=== PATIENT | male | born 1950 | race Caucasian/White ===

== ENCOUNTER 2022-06-18 21:18 | Emergency (ER) | payer MEDICARE, OTHER, SELFPAY ==
[2022-06-18] VITALS (10 sets, daily range): BP systolic 134–188; BP diastolic 71–92; PULSE 43–57; RESP 16; TEMP 36.1; O2SAT 92–97
--- NOTE | 2022-06-18 22:14 | ED_ITS ---
HPI - General Adult General Chief complaint: Unspecified Complaint, Adult Stated complaint: heart rate is low, blood pressure 172/85 Time Seen by Provider: 06/18/22 21:56 History of Present Illness HPI narrative: 72-year-old man the history apparently of some heart rate variability though not so extreme presenting today with concern of low heart rate. Apparently watch alerted him to heart rate in the 30s. Thirty-eight he shows on his watch. Asymptomatic otherwise. The later conversation reveals that sometimes will feel a little tap on his chest. Arrival here EKG shows seems to show numerous PVCs no 1st degree AV block at 61 there is a left bundle. He notes a ?prostate from hell that sometimes babin but otherwise in usual state of health. Usual state of health does include vigorous daily walking which has not apparently been affected recently. Does also have dyspepsia/GERD and takes omeprazole for this which causes some numb lips; doctor aware they have decided to continue with omeprazole. Has also recently developed peripheral neuropathy, numb/tingling feet, for which he is initiated gabapentin. He has otherwise not had atypical chest pain, shortness of breath, lightheadedness. No fever cough or cold symptoms. Multiple cocktails in the evening now that retired. Active Problems Medical Problems: Hyperlipidemia BPH (benign prostatic hyperplasia) Migraines Gout Spinal stenosis Hypertension Chronic prostatitis Vitamin B12 deficiency GERD (gastroesophageal reflux disease) Hiatal hernia RUQ abdominal pain Irritable bowel syndrome (IBS) Alcoholic fatty liver suspect HCD (health care directive) Health Care Directive completed on 04/22/18. Reviewed for scanning to medical record on 03/05/19. LLQ abdominal pain Surgical Problems: Hx of left inguinal hernia repair History of testicular surgery Historical Problems Medical Problems: Diverticulitis Related Data Previous Rx's Medication Instructions Recorded sildenafil 100 mg tablet (Viagra) 100 mg PO QDAY PRN sexual activity 06/13/22 #9 tabs Allergies Allergy/AdvReac Type Severity Reaction Status Date / Time No Known Drug Allergies Allergy Verified 03/21/22 11:18 Review of Systems Status of ROS: Reports: 10 or more systems reviewed and unremarkable except as noted in History and below [facility] Medical History Erectile dysfunction Social History Smoking Status: Never smoker How often do you have a drink containing alcohol: 2-3 times a week AUDIT-C Alcohol total score: 3 Non-prescribed substance use: denies use Exam Narrative: Exam Narrative: Very pleasant. Generally flatter or blunted affect. NAD. Seems either tired or with some mildly slowed cognition. Cranial nerves 2-12 look to be intact. He is breathing easily. Head is atraumatic. Neck is supple. I do not appreciate JVD. Lungs appear to be clear. Heart with an irregularly irregular rhythm. Palpates irregularly. Abdomen is protuberant soft nontender. Extremities well perfused. Moving all extremities without difficulty with intact strength and sensation, though I did not remove socks to further evaluate feet. He does have mild dependent lower extremity edema. Const: Vital Signs, click to edit/add: Vital Signs - 24 hr 06/18/22 21:29 06/18/22 21:41 06/18/22 22:00 Temperature 96.9 F L Pulse Rate 52 L 43 L Pulse Rate [Right Pulse Oximeter] 55 L Respiratory Rate 16 Blood Pressure Blood Pressure [Le ft Upper Arm] 188/92 H Pulse Oximetry 97 95 95 Oxygen Delivery Me thod Room Air 06/18/22 22:03 06/18/22 22:36 06/18/22 22:37 Temperature Pulse Rate 47 L 51 L 57 L Pulse Rate [Right Pulse Oximeter] Respiratory Rate Blood Pressure 164/78 H 151/89 H Blood Pressure [Le ft Upper Arm] Pulse Oximetry 96 95 94 Oxygen Delivery Me thod 06/18/22 23:00 06/18/22 23:03 06/18/22 23:30 Temperature Pulse Rate 54 L 53 L 57 L Pulse Rate [Right Pulse Oximeter] Respiratory Rate Blood Pressure 134/71 Blood Pressure [Le ft Upper Arm] Pulse Oximetry 92 94 96 Oxygen Delivery Me thod 06/19/22 00:13 06/19/22 00:16 06/19/22 00:30 Temperature Pulse Rate 63 59 L 59 L Pulse Rate [Right Pulse Oximeter] Respiratory Rate Blood Pressure 128/105 H Blood Pressure [Le ft Upper Arm] Pulse Oximetry 95 95 96 Oxygen Delivery Me thod Documenting provider has reviewed patient's vital signs: yes Course Vital Signs Vital signs: Initial Vital Signs Temperature 96.9 F L 06/18/22 21:29 Temperature Source Temporal Artery Scan 06/18/22 21:29 Pulse Rate 55 L 06/18/22 21:29 Pulse Rhythm 06/18/22 21:29 Respiratory Rate 16 06/18/22 21:29 Blood Pressure 188/92 H 06/18/22 21:29 Blood Pressure Mean 124 06/18/22 21:29 Blood Pressure Position Semi-Fowlers 06/18/22 21:29 Pulse Oximetry 97 06/18/22 21:29 Oxygen Delivery Method 06/18/22 21:29 Vital Signs Temperature 96.9 F L 06/18/22 21:29 Pulse Rate 55 L 06/18/22 21:29 Respiratory Rate 16 06/18/22 21:29 Blood Pressure 188/92 H 06/18/22 21:29 Pulse Oximetry 97 06/18/22 21:29 Oxygen Delivery Method 06/18/22 21:29 Temperature 96.9 F L 06/18/22 21:29 Pulse Rate 59 L 06/19/22 00:30 Respiratory Rate 16 06/18/22 21:29 Blood Pressure 128/105 H 06/19/22 00:16 Pulse Oximetry 96 06/19/22 00:30 Oxygen Delivery Method 06/18/22 21:29 Medical Decision Making MDM Narrative Medical decision making narrative: Monitored on vehicle monitor technician during time in the emergency department. Continuing to demonstrate PVCs and ectopy. There may have been a brief run of supraventricular tachycardia. Remains asymptomatic. IV was initiated received a L of normal saline. Labs were unremarkable. I did review EKGs with Cardiology. Also wondering whether there are non- conducting PACs. They are recommending ZIO patch though comfortable with what we have available in the form of a Holter monitor. No other intervention at this time. Lab Data Lab results reviewed: Yes I reviewed the patient's lab results Labs: Lab Results 06/18/22 06/18/22 06/18/22 Range/Units 22:12 22:12 22:13 Sodium 139 (135-149) mmol/L Potassium 3.7 (3.6-5.1) mmol/L Chloride 106 (96-114) mmol/L Carbon Dioxide 27 (20-32) mmol/L BUN 16 (7-30) mg/dL Creatinine 1.0 (0.5-1.5) mg/dL Estimated GFR 79 ml/min Glucose 122 H (60-115) mg/dL Calcium 9.4 (8.4-10.6) mg/dL Magnesium 2.2 (1.5-2.6) mg/dL Total Bilirubin 0.5 (0.1-1.5) mg/dL Direct Bilirubin 0.2 (0.0-0.5) mg/dL AST 33 (12-35) U/L ALT 27 (4-50) U/L Alkaline Phosphatase 138 (40-150) U/L Troponin I 0.02 (0.01-0.04) ng/mL C-Reactive Protein < 0.5 L (0.5-1.0) mg/dL NT-Pro-B Natriuret Pep 654 pg/mL Total Protein 7.8 (6.0-8.3) g/dL Albumin 4.4 (3.3-5.0) g/dL Urine Opiates Screen Negative (Negative) Ur Oxycodone Screen Negative (Negative) Urine Methadone Screen Negative (Negative) Ur Propoxyphene Screen Negative (Negative) Ur Barbiturates Screen Negative (Negative) U Tricyclic Antidepress Negative (Negative) Ur Phencyclidine Scrn Negative (Negative) Ur Amphetamines Screen Negative (Negative) U Methamphetamines Scrn Negative (Negative) U Benzodiazepines Scrn Negative (Negative) Urine Cocaine Screen Negative (Negative) U Marijuana (THC) Screen Negative (Negative) Ur Drug Screen Comment See Note Ethyl Alcohol < 0.01 L (0.01-0.03) % ECG Data Attestation: I personally reviewed and interpreted this ECG as follows: (1. sinus bradycardia, rate of 61, frequent pvcs (also a brief run of tachycardia, svt?) 2. sinus bradycardia, pvcs and fusion) Discharge Plan Discharge Clinical Impression: Asymptomatic PVCs, Arrhythmia, Bradycardia Patient Disposition: Home w/ Parent or Adult Condition: Stable Instructions: Bradycardia (ED) Additional Instructions: Important to stay well hydrated...with water at least. :) At this point I do not see any reason to restrict your exercise from what you are doing. Turn in this Holter monitor as instructed. I would call tomorrow for a follow- up in primary care probably around 7-10 days from now to follow-up the results. In the meantime, return for recurrent chest pain, increasing shortness of breath, recurrent lightheadedness. Prescriptions: No Action sildenafil [Viagra] 100 mg tablet 100 mg PO QDAY PRN (Reason: sexual activity) Qty: 9 0RF Rx Instructions: administer 1 tablet, 1 hour prior to intercourse Follow Up/Referrals: Kun Schneider MD [Primary Care Provider] - Stand Alone Forms: [employer] [facility] Info Instructions
[2022-06-18 22:23] LABS: Chloride* 106 mmol/L (96-114); Sodium* 139 mmol/L (135-149)
[2022-06-18 22:24] LABS: Potassium* 3.7 mmol/L (3.6-5.1)
[2022-06-18 22:25] LABS: Albumin* 4.4 g/dL (3.3-5.0)
[2022-06-18 22:26] LABS: Estimated Glomerular Filt Rate 79 ml/min
[2022-06-18 22:27] LABS: Blood Urea Nitrogen* 16 mg/dL (7-30); Calcium* 9.4 mg/dL (8.4-10.6); Carbon Dioxide* 27 mmol/L (20-32); Glucose* 122 mg/dL (60-115)
[2022-06-18 22:28] LABS: Alanine Aminotransferase* 27 U/L (4-50); Alkaline Phosphatase* 138 U/L (40-150); Aspartate Amino Transferase* 33 U/L (12-35); Bilirubin Direct* 0.2 mg/dL (0.0-0.5); Bilirubin Total* 0.5 mg/dL (0.1-1.5); Magnesium* 2.2 mg/dL (1.5-2.6); Total Protein* 7.8 g/dL (6.0-8.3)
[2022-06-18 22:36] LABS: C Reactive Protein* < 0.5 mg/dL (0.5-1.0)
[2022-06-18 22:36] LABS: Ethanol* < 0.01 % (0.01-0.03); NT Pro B Type NatriureticPept* 654 pg/mL
[2022-06-18 22:39] LABS: Amphetamine Screen Urine Negative (Negative); Barbiturate Screen Urine Negative (Negative); Benzodiazepines Screen Urine Negative (Negative); Cannabinoid Screen Urine Negative (Negative); Cocaine Screen Urine Negative (Negative); Methadone Screen Urine Negative (Negative); Methamphetamines Screen Urine Negative (Negative); Opiate Screen Urine Negative (Negative); Oxycodone Screen Urine Negative (Negative); Phencyclidine Screen Urine Negative (Negative); Tricyclic Antidepressant Urine Negative (Negative)
[2022-06-18 22:39] LABS: Troponin I* 0.02 ng/mL (0.01-0.04)
[2022-06-18] MEDS: 0.9 % SODIUM CHLORIDE 1000 ml 1,000 ML IV (23:00)
[2022-06-19 00:13] VITALS: PULSE 63; O2SAT 95
[2022-06-19 00:16] VITALS: BP 128/105; PULSE 59; O2SAT 95
[2022-06-19 00:30] VITALS: PULSE 59; O2SAT 96
== END 2022-06-19 01:24 | disposition home or self-care (01) ==
PROVIDERS: Emergency Provider Family Medicine; PCP Internal Medicine
DX: I49.3 Ventricular premature depolarization (principal); R00.1 Bradycardia, unspecified; I49.9 Cardiac arrhythmia, unspecified
CPT/HCPCS: 36415; 80048; 80076; 80306; 82077; 83735; 83880; 84484; 86140; 93005; 93225; 93226; 96360; 99284; J7030

== ENCOUNTER 2022-09-19 07:51 | Outpatient (CLI) | payer MEDICARE, OTHER, SELFPAY ==
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
== END 2022-09-19 07:52 | disposition home or self-care (01) ==
PROVIDERS: PCP Internal Medicine; Visit Provider Internal Medicine
DX: E78.5 Hyperlipidemia, unspecified (principal); I10 Essential (primary) hypertension; Z12.5 Encounter for screening for malignant neoplasm of prostate
CPT/HCPCS: 80053; 80061; 84153

== ENCOUNTER 2023-01-31 06:25 | Outpatient (CLI) | payer MEDICARE, OTHER, SELFPAY ==
--- OUTSIDE RECORDS SUMMARY | 2023-01-31 06:27 | XMS_ITS | Continuity of Care Document ---
Author Name Unknown Organization [facility] Address [address] [address] [place] [address] Phone Care Team Providers Care Repair Department Manager Name Role Phone Jamar Russell MD Unavailable Unavailable Allergies, Adverse Reactions, Alerts Substance Reaction Status Criticality No Known Allergies Active No Inform ation Medications Medication Instructions Dosage Effective Dates (start - stop) Status Comments Protonix 40 mg tablet,delayed release take 1 tablet by oral route every day 40 MG - Active dicyclomine 10 mg capsule take 1 capsule by oral route 4 times every day 10 MG - Active allopurinol 300 mg tablet take 1 tablet by oral route every day 300 MG - Active BENEFIBER (unknown strength) Not Available - Active METHYLPREDNISOLONE (unknown strength) take by oral route as directed per package instructions Not Available - Active Protonix 40 mg granules delayed-release packet take 1 packet by oral route every day mixed in 1 teaspoonful of applesauce or apple juice 40 MG - No Longer Active Protonix 40 mg granules delayed-release packet take 1 packet by oral route every day mixed in 1 teaspoonful of applesauce or apple juice 40 MG - No Longer Active Procedures Procedure Date Offic/outpt E&m Estab Low-mod 1 Established Level 3 or 15-24 min 2019 Breath Test Lactose Breath Test Glucose Breath Test Fructose Routine Serum Collection Gg; Iga, Igd, Igg, Igm, Ea New Level 3 or 30-44 min Advance Directives Directive Yes / No Effective Date File Name No Information Encounters Encounter Description Practice Location Reason(s) For Visit Diagnoses Date Provider Providers Copied on Encounter Offic/outpt E&m Estab Low-mod [facility], [address] [address], [place], [place], [id number], [place] tel:[phone] [facility] GI Symptoms or Concerns (chief complaint) Irritable bowel syndrome with diarrhea 1 Drew Roldan. [address], [facility] [address], [facility] [place], [id number] , [place]. tel: [phone] Referring Provider: Referral Self. [facility], [address] [address], [place], [place], [id number], [place] tel:[phone] [facility] No Information 1 Albaro Garcia. [address], [facility] [address], [place], [place], [id number] , [place]. tel: [phone] [facility], [address] [address], [place], [place], [id number], [place] tel:[phone] [facility] No Information 1 Edstrom LIANG Welch. [address], [address], [place], [place], [id number] , [place]. tel: [phone] Established Level 3 or 15-24 min [facility], [address] [address], [place], [place], [id number], [place] tel:[phone] [facility] GI Symptoms or Concerns (chief complaint) Mixed irritable bowel syndromeEncounte r for screening colonoscopy 0 Edstrom LIANG Welch. [address], [facility] [address], [place], [place], [id number] , [place]. tel: [phone] Referring Provider: Referral Self. [facility], [address] [address], [place], [id number], [place] tel:[phone] [facility] Mixed irritable bowel syndrome 0 Edstrom LIANG Welch. [address], [address], [place], [place], [address] , [place]. tel: [phone] Referring Provider: Rebekah TAVERA, [address], [place], [address] . tel:[phone] [facility], [address] [address], [place], [place], [address], [place] tel:[phone] [facility] Mixed irritable bowel syndrome 0 Edstrmichel Welch. [address], [address], [place], [address] , [place]. tel: [phone] Referring Provider: Rebekah TAVERA, [address], [place], [address] . tel:[phone] [facility], [address] [address], [place], [id number], [place] tel:[phone] [facility] Mixed irritable bowel syndrome 0 Edstrmichel Welch. [address], [address], [place], [address] , [place]. tel: [phone] Referring Provider: Rebekah TAVERA, [address], [place], [address] . tel:[phone] [facility], [address] [address], [place], [place], [id number], [place] tel:[phone] [facility] Mixed irritable bowel syndrome 0 Edstrmichel Welch. [address], [address], [place], [address] , [place]. tel: [phone] Referring Provider: Referral Self. New Level 3 or 30-44 min [facility], [address] [address], [place], [place], [address], [place] tel:[phone] [facility] GI Symptoms or Concerns (chief complaint) Irritable bowel syndrome with both constipation and diarrhea 0 Edstrom LIANG SaleemRebekah. [address], [address], [place], [address] , [place]. tel:[phone] Referring Provider: Kun Porter, [address] [place] [address], [address]. tel:[phone] [facility], [address] [address], [place], [address], [place] tel:[phone] [facility] No Information 0 Albaro Garcia. [address], [address], [place], [place], [address] , [place]. tel:[phone] Family History Family Member Type Diagnosis Age At Onset No Information Immunizations Vaccine Date Status Comments zoster vaccine recombinant administered N ote: [facility] bi-directional interface ; Source: Other Registry SARS-COV-2 (COVID-19) vaccin e, mRNA, spike protein, LNP, preservative free, 30 mcg/0.3mL dose administered Note: [facility] bi-direct ional interface ; Source: Other Registry SARS-COV-2 (COVID-19) vaccin e, mRNA, spike protein, LNP, preservative free, 30 mcg/0.3mL dose administered Note: [facility] bi-direct ional interface ; Source: Other Registry influenza, high-dose seasona l, quadrivalent, .7mL dose, preservative free administered Note: [facility] bi-direct ional interface ; Source: Other Registry zoster vaccine recombinant administered N ote: [facility] bi-directional interface ; Source: Other Registry influenza, high dose seasona l, preservative-free administered Note: [facility] bi-direct ional interface ; Source: Other Registry Pneumovax 23 administered Note: [facility] bi-d irectional interface ; Source: Other Registry influenza, high dose seasona l, preservative-free administered Note: [facility] bi-direct ional interface ; Source: Other Registry Afluria Qd administered Note: [facility] bi-directional interface ; Source: Other Registry Fluzone Quad 6mo or older administered Note: [facility] bi-direct ional interface ; Source: Other Registry tetanus toxoid, reduced diphtheria toxoid, and acellular pertussis vaccine, adsorbed administered Note: [facility] b i-directional interface ; Source: Other Registry influenza, high dose seasona l, preservative-free administered Note: [facility] bi-direct ional interface ; Source: Other Registry Prevnar 13 administered Note: [facility] bi-d irectional interface ; Source: Other Registry Afluria Qd administered Note: [facility] bi-directional interface ; Source: Other Registry Fluzone Quad 6mo or older administered Note: [facility] bi-direct ional interface ; Source: Other Registry Payers Payer name Insurance type Covered constitution party ID Authordevina gladys(s) Medicare NGS MB [id number] [facility]3] [id number] Social History Type Description Quantity Date Captured Comments Alcohol Use Details Caffeine Use Details Unknown Tobacco Use Status No Information Smoking Status Former smoker Non-Smoking Tobacco Use Details : No Details Available : No Details Available Sex Male Vital Signs Date / Time: Height Weight BMI Pulse Rate Blood Pressure Temperature Respiratory Rate Body Surface Area Head Circumference Head Circ. Percentile Wt./Jose Luis. Percentile BMI percentile Pulse Ox Inhaled Ox 12:48 PM 72.50 in 97.522 kg (215.00 lbs) 28.7 6 kg/m eter (2) 94 /min 145/85 mm[Hg] Chief Complaint And Reason For Visit From encounter dated '12/19/2020 13:00'. GI Symptoms or Concerns (chief complaint). Description: The patient is a 70-year-old man with irritable bowel syndrome here for in-person clinic follow up. This is my first time meeting the patient. Please see the last note by Rebekah Portillo February 2020.At that visit, the patient was tried on Be nefiber, dicyclomine, advised to minimize or avoid dairy. His next colonoscopy for routine purposeswas due in 2022.The patient reports that he has been using Benefiber, taking 2 heaping teaspoons daily. He states it works well in terms of bowel regularity. He is now having a bowel movement in the morning and it is part of his regular routine and is controlled. He is on the low FODMAPs diet and uses an alyssa on his phone to help. He is lactose intolerant and generally avoids dairy products, but does carry lactate to use if he has some exposure. He has some intermittent cramping and urgency, which he treats with dicyclomine, which helps. He uses this prior to triggers especially. He is taking the dicyclomine 1 to 2 times a week. He also states that he thinks 70% of his problem could be &# 34;above the years with some anxiety and he apparently has talked to primary care providerabout this and is considering following up again to discuss potential treatment. His weight has been relatively stable, but is down 5 to 6 pounds after cutting out carbohydrates, but no unintentionalweight loss. No blood in the stools or black stools or vomiting. He is going to be traveling and wondered if there were any additional suggestions for his irritable bowel while he travels and this was discussed with him today in the context of IBS management. Reason For Referral Reason For Referral No Information Plan Of Treatment Date Type Action Status Referral Ordered: Colonoscopy Appointment date/timeframe: 02/02/2023 ordered Referral Ordered: Breath Test Lactose Appointment date/timeframe: 01/03/2020 ordered Referral Ordered: Breath Test Fructose Appointment date/timeframe: 01/03/2020 ordered Referral Ordered: Celiac: TTG IgA + Total IgA Appointment date/timeframe: 01/03/2020 ordered Referral Ordered: Breath Test Glucose Appointment date/timeframe: 01/03/2020 ordered History Of Present Illness Encounter Date Complaint History Of Prese nt Illness GI Symptoms or Concerns The nayely ent is a 70-year-old man with irritable bowel syndrome here for in-person clinic follow up. This is my first time meeting the patient. Please see the last note by Rebekah Portillo February 2020.At that visit, the patient was tried on Benefiber, dicyclomine, advised to minimize or avoid dairy. His next colonoscopy for routine purposes was due in 2022.The patient reports that he has been using Benefiber, taking 2 heaping teaspoons daily. He states it works well in terms of bowel regularity. He is now having a bowel movement in the morning and it is part of his regular routine and is controlled. He is on the low FODMAPs diet and uses an alyssa on his phone to help. He is lactose intolerant and generally avoids dairy products, but does carry lactate to use if he has some exposure. He has some intermittent cramping and urgency, which he treats with dicyclomine, which helps. He uses this prior to triggers especially. He is taking the dicyclomine 1 to 2 times a week. He GI Symptoms or Concerns This is a pleasant 69-year-old male with past medical history significant for hyperlipidemia, hypertension, gout, vitamin B12 deficiency, spinal stenosis, chronic prostatitis, and GERD, presenting for virtual visit for followup regarding irritable bowel syndrome.The patient had his initial consultation on December 28, 2019. At that time, he described over 30 years of symptoms including intermittent abdominal cramping, alternating diarrhea and constipation, and rectal urgency. The symptoms are unpredictable. In between episodes, he has regular, formed daily bowel movements. A flareup" includes a normal formed stool in the morning followed by 2 to 3 more urgent loose bowel movements with associated abdominal cramping and increased flatulence. This can alternate then with at times having an urge to have a bowel movement and then not being able to pass stool or only a small amount. He is most bothered by the urgency symptoms. This tends to interfere with social engagements. He n GI Symptoms or Concerns This is a 69-year-old male with past medical history significant for hyperlipidemia, hypertension, gout, vitamin B12 deficiency, spinal stenosis, chronic prostatitis, and GERD, presenting for virtual visit for consultation regarding irritable bowel syndrome.The patient states that his symptoms began over 30 years ago. The symptoms include intermittent abdominal cramping, alternating diarrhea and constipation, and rectal urgency. His symptoms are unpredictable. In between episodes, he has regular, formed daily bowel movements. When he has a flare-up, he typically will have a normal formed stool in the morning followed by 2 to 3 more urgent loose stools with associated abdominal cramping and increased flatulence. This can alternate with at times and urge to have a bowel movement and then not being able to pass stool. He mentions that currently he has more of a predominance of constipation, but on further questioning, it sounds like it is more predominantly diarrhea. He akbar Functional Status Date Functional Assessmen t No Information Medications Administered Medication Instructions Dosage Effective Dates (start - stop) Status Comments Protonix 40 mg granules delayed-release packet take 1 packet by oral route every day mixed in 1 teaspoonful of applesauce or apple juice 40 MG - No Longer Active Instructions Date Instruction Additional Infor gabby -Continue Benefiber as you are doing-Continue dicyclomine as needed. This is prescribed by your primary care provider.-Continue low FODMAPs diet.-Ok to use if needed 1 or 2 Imodium tablets as anti-diarrhea. You can take before identifiable triggers like we discussed. -Return to GI clinic as needed. Resume follow-up with primary care provider. Related to Irritable bowel syndrome with diarrhea We had a long discus kisha regarding different IBS treatments again today. He is hesitant to start Benefiber given he had increased urgency and loose stools with psyllium in the past. Potentially, he may have better response with Benefiber. This hopefully would give more bulk to his stools and decrease urgency and loose stools. I also recommended dicyclomine to see if this also helps with his urgency. This particular symptom tends to be more problematic when he needs to go out socially. I think it would be beneficial to try taking about half-hour before he goes anywhere. He can also take this for abdominal cramping as needed. He is in his 70s, and we discussed the higher risk of anticholinergic side effects with this medication. He will monitor closely for these. His next screening colonoscopy is due in 2022, and I did place him in our recall. Random colon biopsies can be done at that time, if he continues to have ongoing symptoms, to rule out microscopic colitis. However, my suspicion for this is low given his extensive evaluations in the past. Related to Mixed irritable bowel syndrome The patient was most ly interested in different IBS treatments and these were discussed today. However, we will move forward with a celiac, lactose, and fructose breath testing, and glucose breath testing for small intestinal bacterial overgrowth. He currently is not having any symptoms and does not wish to start any medications presently. However, we did discuss fiber supplementation such as Benefiber to maintain regular bowel movements. In addition, an antispasmodic medication may be helpful. If he again has more prolonged symptoms of the loose stools as he had previously, could consider colonoscopy with random colon biopsies. This is not urgent at the present time. He will follow up in clinic in about 4 weeks. Related to Irritable bowel syndrome with both constipation and diarrhea Assessments Type Assessment Date assessment Irritable bowel syndrome with di arrhea impression IMPRESSIONA 70-year- old man with irritable bowel syndrome. Overall, his symptoms are globally controlled. We discussed irritable bowels natural history, pathophysiology and treatment. The patient had a number of questions today, which were answered. We discussed his travel related questions. Patient Care Teams Name Effective Dates (start - stop) Status Members No Information
--- OUTSIDE RECORDS SUMMARY | 2023-01-31 06:27 | XMS_ITS | Continuity of Care Document ---
Author Name Unknown Organization [facility] Address [address] [place] [address] Phone Care Team Providers Care Assistant District Attorney Name Role Phone Joel Meeks Unavailable Unavailable [...] For Visit Diagnoses Date Provider [facility], [address] [place] [address], [id number], tel:[phone] [facility] No Information Vielka Esquivelon. [address] [place] [address], [id number]. tel:[phone] EST PT VISIT LEVEL 4 [facility], [address] [place] [address], [id number], [place] tel:[phone] [facility] Follow Up of Prostate problems (chief complaint) Dietary surveillance and counselingChronic prostatitis Sheree Pires. [address] [place] [address], [id number]. tel:[phone] [facility], [address] [place] [address], [id number], tel:[phone] [facility] No Information Rosedale Joel. [address] [place] [address], [id number]. tel:[phone] [facility], [address] [place] [address], [id number], [place] tel:[phone] [facility] No Information [place]osedale Joel. [address] [place] [address], [id number]. tel:[phone] [facility], [address] [place] [address], [id number], [place] tel:[phone] [facility] No Information Gilberto Sears. , [place], [address], [place]. EST PT VISIT LEVEL 2 [facility], [address] [place] [address], [id number], [place] tel:[phone] [facility] Prostate problems (chief complaint) Dietary surveillance and counselingChronic prostatitis Vielka Joel. [address] [place] [address], [id number]. tel:[phone] EST PT VISIT LEVEL 3 [facility], [address] [place] [address], [id number], tel:[phone] [facility] Groin pain (chief complaint) Other specified disorders of male genital organsRight groin pain Vielka Maldonado. [address] [place] [address], [id number]. tel:[phone] EST PT VISIT LEVEL 3 [facility], [address] [place] [address], [id number], tel:[phone] [facility] Testicular pain (chief complaint)Pro state Problems (chief complaint) Nocturia Sheree Pires. [address] [place] [address], [id number]. tel:[phone] [facility], [address] [place] [address], [id number], tel:[phone] [facility] No Information Vielka Maldonado. [address] [place] [address], [id number]. tel:[phone] Family History Family Member Type Diagnosis Age At Onset Problem (finding) Family history of coronary arteriosclerosis 65 Immunizations Vaccine Date Status Comments Influenza, live, intranasal, quadrivalent administered Note: Invalid docume nted admin date was . ; Source: Other Provider Payers Payer name Insurance type Covered republican ID Luciano graham(s) [facility] Part B W P S [id number] [facility] W P S [id number] Social History Type Description Quantity Date Captured [...] occur randomly. Patient initially presented in the [facility] with what I believe was [...] light laser about 10 years ago in [place]. He has had intermittent symptoms. Throughout the years. He presents today as he has been having symptoms for about 3 months. He has just finished a one-month course of Cipro. He appears to have a nonbacterial prostatitis. His symptoms are worse with spicy and acidic foods or if he gets dehydrated. He is getting ready to leave for the [facility] in the morning for 5 days. PSA [...] 12 years ago and a urologist in [place] found some cysts on his testicle and [...]
--- NOTE | 2023-01-31 07:52 | P.ANES_ITS ---
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
--- NOTE | 2023-01-31 07:54 | W.ANESCHARGE ---
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
== END 2023-01-31 06:26 | disposition home or self-care (01) ==
PROVIDERS: PCP Internal Medicine; Visit Provider Internal Medicine
DX: Z12.11 Encounter for screening for malignant neoplasm of colon (principal); K57.30 Diverticulosis of large intestine without perforation or abscess without bleeding; K63.5 Polyp of colon; K64.8 Other hemorrhoids
CPT/HCPCS: 00811; 45380; 88305; 99100; J2704

== ENCOUNTER 2023-09-25 07:36 | Outpatient (CLI) | payer MEDICARE, OTHER, SELFPAY ==
--- OUTSIDE RECORDS SUMMARY | 2023-10-16 11:41 | XMS_ITS | Referral Summary ---
Author Name Unknown Organization [facility] Address [address] [place] [address] Care Team Providers Care Phone Representative Name Role Phone Unavailable Primary Care Provider Unavailabl e Source Comments Patient records contain information from all sites at [facility]. For routine questions regarding patient records, call [phone] during business hours, M-F 8:00 AM - 5:00 PM Central Time. Record requests for emergency care only can be directed to [phone] at any time.[facility] Encounters Date Type Department Care Team Description 07/23/2023 Orders Only Division of Gastroenterology in [place], [place] [address] [place] [address] Fernando Ye M.D. Genetic Susceptibility To Disease from Last 3 Months Allergies No known active allergies Medications Medication Sig Dispensed Refills Start Date End Date Status dicyclomine (BENTYL) 20 mg tablet Take 20 mg by mouth as needed. 03/28/2021 Active pantoprazole (PROTONIX) 40 mg EC tablet 11/02/2020 Active allopurinoL (ZYLOPRIM) 300 mg tablet Take 1 tablet by mouth daily. 12/15/2015 Active sildenafiL (VIAGRA) 100 mg tablet 11/02/2020 Active wheat dextrin (Benefiber Clear SF, dextrin,) 3 gram/3.5 gram packet Active ibuprofen (ADVIL,MOTRIN) 400 mg tablet Take 400 mg by mouth every 6 (six) hours as needed for pain. Active acetaminophen (TYLENOL) 500 mg capsule Take by mouth every 6 (six) hours as needed for pain. Active gabapentin (NEURONTIN) 100 mg capsule TAKE 1 CAPSULE BY MOUTH 3 TIMES A DAY 270 capsule 3 08/27/2022 Active Active Problems Problem Noted Date Diagnosed Date Neuropathy Peripheral 02/28/2022 Migraine Headache 02/28/2022 Spasm Muscle Social History Tobacco Use Types Packs/Day Years Used Date Smoking Tobacco: Former Cigarettes Q uit: 1985 Smokeless Tobacco: Never Tobacco Cessation:Counseling Given: Not Answered Humiliation, Afraid, Rape, and Kick questionnair e Answer Date Recorded Within the last year, have y ou been afraid of your partner or ex-partner? No 11/24/2021 Within the last year, have y ou been humiliated or emotionally abused in other ways by your partner or ex-partner? No Within the last year, have y ou been kicked, hit, slapped, or otherwise physically hurt by your partner or ex-partner? No 11/24/2021 Within the last year, have y ou been raped or forced to have any kind of sexual activity by your partner or ex-partner? No 11/24/2021 Social Connection and Isolation Panel [NHANES] A nswer Date Recorded In a typical week, how many times do you talk on the phone with family, friends, or neighbors? Three times a week 11/25/19 How often do you get togethe r with friends or relatives? Once a week 11/24/2021 How often do you attend chur or yazdanism services? Never 11/24/2021 Do you belong to any clubs o r organizations such as advent groups, unions, fraternal or athletic groups, or school groups? Yes 11/24/2021 How often do you attend meet ings of the clubs or organizations you belong to? 1 to 4 times per year 11/24/2021 Are you , , di vorced, , never , or living with a partner? 11/24/2021 AUDIT-C Answer Date Recorded Q1: How often do you have a drink containing alc ohol? 2-3 times a week 11/24/2021 Q2: How many drinks containi ng alcohol do you have on a typical day when you are drinking? 1 or 2 11/24/2021 Q3: How often do you have si x or more drinks on one occasion? Never 11/24/2021 Overall Financial Resource Strain (CARDIA) Answe r Date Recorded How hard is it for you to pa y for the very basics like food, housing, medical care, and heating? Not hard at all 11/24/2021 [facility] [place] [facility] Occup[facility] ional [facility] - Occupational Stress Questionnaire Answer Date Recorded Do you feel stress - tense, restless, nervous, or anxious, or unable to sleep at night because your mind is troubled all the time - these days? Not at all 11/24/2021 Exercise Vital Sign Answer Date Recorde d On average, how many days pe r week do you engage in moderate to strenuous exercise (like a brisk walk)? 7 days 11/24/2021 On average, how many minutes do you engage in exercise at this level? 30 min 11/24/2021 Hunger Vital Sign Answer Date Recorded Within the past 12 months, y ou worried that your food would run out before you got the money to buy more. Never true 11/25/19 Within the past 12 months, t he food you bought just didn't last and you didn't have money to get more. Never true 11/24/2021 PRAPARE - Transportation Answer Date Re corded In the past 12 months, has l ack of transportation kept you from medical appointments or from getting medications? No 11/01 In the past 12 months, has l ack of transportation kept you from meetings, work, or from getting things needed for daily living? No 11/24/2021 Housing Stability Vital Sign Answer Morteza e Recorded In the last 12 months, was t here a time when you were not able to pay the mortgage or rent on time? No 11/24/2021 In the last 12 months, how many places have you lived? 1 11/24/2021 In the last 12 months, was t here a time when you did not have a steady place to sleep or slept in a intermediate (including now)? No 11/24/2021 Nutrition Answer Date Recorded Nutrition: EVOO Fat Source Yes 11/24 On average, how many serving s of fruits and vegetables do you eat per day (serving size is equal to 1 cup or approximately the size of a tennis ball)? 4-5 11/24/2021 Dental Answer Date Recorded Dental: Regular Dentist Yes 11/25/19 Employment Answer Date Recorded Employment status Retired 11/24/2021 Education Answer Date Recorded What is the highest level of school you have completed or the highest degree you have received? Bachelor's degree (e.g., BA, AB, BS) 11/24/2021 Sex and Gender Information Value Date Recorded Sex Assigned at Male 02/23/2022 7:52 PM CDT Gender Identity Male 02/23/2022 7:52 PM CDT Sexual Orientation Straight 02/23/2022 7: 52 PM CDT Last Filed Vital Signs Vital Sign Reading Time Taken Comments Blood Pressure 158/89 02/28/2022 8:41 AM CDT Pulse 86 02/28/2022 8:41 AM CDT Temperature - - Respiratory Rate - - Oxygen Saturation - - Inhaled Oxygen Concentration - - Weight 100 kg (220 lb 7.4 oz) 02/28/2022 8:35 AM CDT Height - - Body Mass Index - - Plan of Treatment Not on file Procedures Procedure Name Priority Date/Time Associated Diagnosis Comments EXTI BASIC METABOLIC PANEL, S/P Routine 12/04/2022 10:31 AM CDT from Last 3 Months or Most Recently Relevant to Health Maintenance
--- OUTSIDE RECORDS SUMMARY | 2023-10-16 11:41 | XMS_ITS | Clinical Summary ---
Author Name Unknown Organization [facility] Address [place], [place] [address] Care Team Providers Care Public Information Specialist Name Role Phone Knu Schneider MD Primary Care Provider Allergies No known active allergies Medications Medication Sig Dispensed Refills Start Date End Date Status allopurinol (ZYLOPRIM) 300 mg tablet Take 1 tablet by mouth once daily. 0 12/27/2016 Active acetaminophen (TYLENOL) 500 mg capsule Take by mouth every 6 hours if needed. Active ibuprofen (ADVIL; MOTRIN) 400 mg tablet Take 400 mg by mouth every 6 hours if needed. Active pantoprazole (PROTONIX) 40 mg delayed-release tablet Take 40 mg by mouth once daily. 02/04/2022 Active sildenafil citrate (VIAGRA) 100 mg tablet TAKE ONE TABLET BY MOUTH EVERY DAY NEEDED FOR SEXUAL ACTIVITY. TAKE 1 HOUR PRIOR TO INTERCOURSE. 12/11/2021 Active Wheat Dextrin (Benefiber Clear) 3 gram/3.5 gram pwpk Active gabapentin (NEURONTIN) 600 mg tablet Take 600 mg by mouth three times daily. 09/23/2022 Active carvediloL (Coreg) 3.125 mg tabletIndications :Heart failure with reduced ejection fraction (HC) Take 1 Tablet (3.125 mg) by mouth two times daily with meals. 180 Tablet 3 03/07/2023 Active sacubitril-valsar chavez (ENTRESTO 24 MG-26 MG TABLET) 24-26 mg tabletIndications :Heart failure with reduced ejection fraction (HC) Take 1 Tablet by mouth two times daily. Further refills at time of next office visit on 11/27/23. 180 Tablet 10/07/2023 Active sacubitril-valsar chavez (ENTRESTO 24 MG-26 MG TABLET) 24-26 mg tabletIndications :Heart failure with reduced ejection fraction (HC) Take 1 Tablet by mouth two times daily. 180 Tablet 1 04/04/2023 10/07/2023 Discontinued Encounters Date Type Department Care Team Description 10/10/2023 Travel 10/07/2023 Refill [facility] [place] [address] [facility] [address] [place] [address] Piper Pickering CNS Refill Request (Entresto 24 Mg-26 Mg Tablet) from Last 3 Months Social History Tobacco Use Types Packs/Day Years Used Date Smoking Tobacco: Former Cigarettes Q uit: 06/02/1985 Smokeless Tobacco: Never Tobacco Cessation:Counseling Given: Not Answered Alcohol Use Standard Drinks/Week Comments Yes 21 (1 standard drink = 0.6 oz pu re alcohol) 2-3 drinks daily Social Connections Answer Date Recorded Frequency of Communication with Friends and Fami ly Not on file 07/12/2022 Sex and Gender Information Value Date Recorded Sex Assigned at Not on file Gender Identity Not on file Sexual Orientation Not on file Obstetrics History Last Filed Vital Signs Vital Sign Reading Time Taken Comments Blood Pressure 140/90 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 Pulse 83 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 Temperature 35.6 ??C (96 ??F) 09/02/2022 2:12 PM CDT Respiratory Rate 18 09/02/2022 2:12 PM CDT Oxygen Saturation 95% 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 Inhaled Oxygen Concentration - - Weight 94.8 kg (209 lb 1.6 oz) 04/18/2023 3:02 P M [employer]ER [employer] RU[employer]ER Height 182.9 cm (6') 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 Body Mass Index 28.36 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 [address] [place] [address] 02/10/2024 11:30 AM CDT Cardiac Device Check [facility] [place] [facility] [address] [place] [id number] Health Maintenance Due Date Last Done Comments Pneumococcal series for age 65+ (1 of 2 - PCV) 02/20/1954 Tdap 02/20/1959 Depression screening for age 12+ 1960 Hepatitis C screening for ag e 18-79 02/20/1966 Tetanus booster 1968 Colonoscopy through age 75 02/20/1993 Lipids for age 45-75 02/20/1993 Zoster (shingles) series for age 50+ (1 of 2) 02/20/1998 Medicare Wellness for age 65+ 02/20/2013 Influenza for age 65+ 02/01/2024 BMI (ht and wt on same day) for age 18+ 04/18/2024 04/18/2023, 11/26/2022, 11/12/2022, Additional history exists COVID-19 vaccine series Completed 04/03/20, 03/21/2022, 10/16/2021, Additional history exists Advance Directives * Full Code (Latest Code Status on File) Date Activated Date Inactivated Comments 09/02/2022 9:44 AM 09/02/2022 5:00 PM Question Answer Comments Code Status Discussion: Other Care Teams Public Information Specialist Relationship Specialty Start Date End Date Kun Schneider MD [address] [place], [place] [id number] PCP - General Internal Medicine 12/27/16
--- OUTSIDE RECORDS SUMMARY | 2023-10-16 11:41 | XMS_ITS | Continuity of Care Document ---
Author Name [facility] Organization [facility] Care Team Providers Care Sash Installer Name Role Phone [facility] Unavailable Unavailable Medications Combined list of outpatient medications from Department of Defense and Veterans Affairs facilities.Medications provided include 1) outpatient medications from the last 15 months, and 2) patient-reported medications. Medication Details Route Status Patient Instructions Prescription Expires Prescription Number Last Dispense Date Ordering Provider Order Date Order Qty Source ALLOPURINOL (allopurino l), 300 MG, TABLET, ORAL, [facility], 500 ea. BOTTLE Active [id number] 4 2023 90 Pharmac y Data Transac tion Service Facilit y ALLOPURINOL (allopurino l), 300 MG, TABLET, ORAL, [facility], 500 ea. BOTTLE Active [id number] 4 2023 90 Pharmac y Data Transac tion Service Facilit y CARVEDILOL (CARVEDILOL ), 3.125MG, TABLET, ORAL, GLENMARK PHARMA, 500 ea. BOTTLE Active [id number] 2023 180 Pharmac y Data Transac tion Service Facilit y CARVEDILOL (CARVEDILOL ), 3.125MG, TABLET, ORAL, [facility]MARK [facility]ARMA, 500 ea. BOTTLE Active [id number] 4 2023 180 Pharmac y Data Transac tion Service Facilit y DICYCLOMINE HCL (DICYCLOMIN E HCL), 10MG, CAPSULE, ORAL, [facility], 100 ea. BOTTLE Cancele d [id number] : 2023 0 Pharmac y Data Transac tion Service Facilit y DICYCLOMINE HCL (DICYCLOMIN E HCL), 10MG, CAPSULE, ORAL, [facility], 100 ea. BOTTLE Cancele d [id number] : 2023 0 Pharmac y Data Transac tion Service Facilit y DICYCLOMINE HCL (DICYCLOMIN E HCL), 10MG, CAPSULE, ORAL, [facility], 100 ea. BOTTLE Cancele d [id number] : 2023 0 Pharmac y Data Transac tion Service Facilit y DICYCLOMINE HCL (DICYCLOMIN E HCL), 10MG, CAPSULE, ORAL, [facility],I NC., 1000 ea. BOTTLE Cancele d [id number] : 2023 0 Pharmac y Data Transac tion Service Facilit y DICYCLOMINE HCL (DICYCLOMIN E HCL), 10MG, CAPSULE, ORAL, [facility],I NC., 1000 ea. BOTTLE Active [id number] 4 2023 90 Pharmac y Data Transac tion Service Facilit y DICYCLOMINE HCL (DICYCLOMIN E HCL), 10MG, CAPSULE, ORAL, [facility],I NC., 1000 ea. BOTTLE Active [id number] 2023 90 Pharmac y Data Transac tion Service Facilit y DIPHENOXYLA TE-ATROPINE (diphenoxyl ate HCl/atropin e sulfate), 2.5-.025MG, TABLET, ORAL, [facility], 100 ea. BOTTLE Active [id number] 2022 30 Pharmac y Data Transac tion Service Facilit y ENTRESTO (sacubitril /valsartan) , 24 MG-26MG, TABLET, ORAL, NOVARTIS, 60 ea. BOTTLE Cancele d [id number] : 2023 0 Pharmac y Data Transac tion Service Facilit y ENTRESTO (sacubitril /valsartan) , 24 MG-26MG, TABLET, ORAL, NOVARTIS, 60 ea. BOTTLE Active [id number] 2023 180 Pharmac y Data Transac tion Service Facilit y ENTRESTO (sacubitril /valsartan) , 24 MG-26MG, TABLET, ORAL, NOVARTIS, 60 ea. BOTTLE Cancele d [id number] : 2023 0 Pharmac y Data Transac tion Service Facilit y ENTRESTO (sacubitril /valsartan) , 24 MG-26MG, TABLET, ORAL, NOVARTIS, 60 ea. BOTTLE Cancele d [id number] : 2023 0 Pharmac y Data Transac tion Service Facilit y ENTRESTO (sacubitril /valsartan) , 24 MG-26MG, TABLET, ORAL, NOVARTIS, 60 ea. BOTTLE Active [id number] 2023 180 Pharmac y Data Transac tion Service Facilit y GABAPENTIN (GABAPENTIN ), 100 MG, CAPSULE, ORAL, ACTAVIS PHARMA,, 500 ea. BOTTLE Active [id number] 2023 180 Pharmac y Data Transac tion Service Facilit y GABAPENTIN (GABAPENTIN ), 600MG, TABLET, ORAL, GLENMARK PHARMA, 500 ea. BOTTLE Active [id number] 2023 180 Pharmac y Data Transac tion Service Facilit y GABAPENTIN (GABAPENTIN ), 600MG, TABLET, ORAL, GLENMARK PHARMA, 500 ea. BOTTLE Active [id number] 2023 180 Pharmac y Data Transac tion Service Facilit y IBUPROFEN (ibuprofen) , 800 MG, TABLET, ORAL, AUROBINDO PHARM, 500 ea. BOTTLE Active [id number] 2023 30 Pharmac y Data Transac tion Service Facilit y PANTOPRAZOL E SODIUM (PANTOPRAZO LE SODIUM), 40 MG, TABLET DR, ORAL, MYLAN, 90 ea. BOTTLE Active [id number] 2023 90 Pharmac y Data Transac tion Service Facilit y PANTOPRAZOL E SODIUM (PANTOPRAZO LE SODIUM), 40 MG, TABLET DR, ORAL, MYLAN, 90 ea. BOTTLE Active [id number] 2023 90 Pharmac y Data Transac tion Service Facilit y SILDENAFIL CITRATE (sildenafil citrate), 100 MG, TABLET, ORAL, AMNEAL PHARMACE, 30 ea. BOTTLE Active [id number] 2023 9 Pharmac y Data Transac tion Service Facilit y SILDENAFIL CITRATE (sildenafil citrate), 100 MG, TABLET, ORAL, AMNEAL PHARMACE, 30 ea. BOTTLE Active [id number] 2023 9 Pharmac y Data Transac tion Service Facilit y SILDENAFIL CITRATE (sildenafil citrate), 100 MG, TABLET, ORAL, AMNEAL PHARMACE, 30 ea. BOTTLE Active [id number] 2023 9 Pharmac y Data Transac tion Service Facilit y SILDENAFIL CITRATE (sildenafil citrate), 100 MG, TABLET, ORAL, AMNEAL PHARMACE, 30 ea. BOTTLE Active [id number] 2023 9 Pharmac y Data Transac tion Service Facilit y Allergies, Adverse Reactions, Alerts Combined list of allergies from Department of Defense and Veterans Affairs facilities. It does not include entries that were removed or entered in error. Substance Category Reaction Severity Reaction type Status Date Reported Comments Source OTHER Drug allergy (disorder) Unknown active 05/22/2007 [facility] Procedures Combined list of: 1) Procedures from Department of Veterans Affairs facilities going back up to [facility] 18 months, not all VA non-surgical procedures are included; 2) All procedures from the Department of Defense facilities. Procedure Procedure Type Code Date Perfomer Comments Sourc e NASOPHARYNGOSCOPY WITH ENDOSCOPE (SEPARATE PROCEDURE) 08/24/2003 [facility] RADIOLOGIC EXAMINATION, CHEST, 2 VIEWS, FRONTAL AND LATERAL; 08/10/2003 [facility] BRUSH FABRICATION SUPERVISOR ELECTROCARDIOGRAPHIC RECORDING UP TO 48 HOUR,CONT RHYTHM RECORDING & STORAGE;INCLUD RECORDING,SCANNING ANAL W REPORT,REVIEW &INTERPRETATION,A PHYSICIAN/OTHER QUALIFIED HEALTH SCRAP PICKER 07/29/2003 [facility] BLOOD PRESSURE CUFF ONLY 03/25/2003 [facility] BLOOD PRESSURE CUFF ONLY 03/24/2003 [facility] BLOOD PRESSURE CUFF ONLY 03/22/2003 [facility] BLOOD PRESSURE CUFF ONLY 03/21/2003 [facility] BLOOD PRESSURE CUFF ONLY 03/18/2003 [facility] BLOOD PRESSURE CUFF ONLY 03/15/2003 [facility] COLLECTION OF VENOUS BLOOD B Y VENIPUNCTURE 11/17/2002 [facility] EDUCATIONAL SUPPLIES, SUCH A S BOOKS, TAPES, AND PAMPHLETS, FOR THE PATIENT'S EDUCATION AT COST TO PHYSICIAN OR OTHER QUALIFIED HEALTH SCRAP PICKER 07/11/2000 [facility] DESTRUCT (EG, LASER SURGERY, ELECTROSURGERY, CRYOSURGERY, CHEMOSURGERY, SURGICAL CURETTEMENT), PREMALIGNANT LESIONS (EG, ACTINIC KERATOSES); 2ND THRU 14 LESIONS, EA (LIST SEP ADDITION CD, 1ST LESION) 11/15/1999 [facility] OSTEOPATHIC MANIPULATIVE TREATMENT (OMT); 1-2 BODY REGIONS INVOLVED 05/17/1999 [facility] OSTEOPATHIC MANIPULATIVE TREATMENT (OMT); 1-2 BODY REGIONS INVOLVED 05/01/1999 [facility] OSTEOPATHIC MANIPULATIVE TREATMENT (OMT); 1-2 BODY REGIONS INVOLVED 04/02/1999 [facility] INFLUENZA VIRUS VACCINE, WHOLE VIRUS, FOR INTRAMUSCULAR OR JET INJECTION USE 04/02/1999 DoD Social History Combined list of available smoking, tobacco, and other social history from Department of Defense and Veterans Affairs facilities. Social History Type Response Date Comment Sour e This section is an empty social history section. [facility]D
--- OUTSIDE RECORDS SUMMARY | 2023-10-16 11:41 | XMS_ITS ---
Author Name Unknown Organization [facility] Address [address] [place] [address] Care Team Providers Care Grinding Operator Name Role Phone Unavailable Unavailable Unavailable Surgery Details Not on file Complications Check Surgery Details section. Procedure Estimated Blood Loss Check Surgery Details section. Procedure Findings Check Surgery Details section. Procedure Specimens Taken Check Surgery Details section.
--- OUTSIDE RECORDS SUMMARY | 2023-10-16 11:41 | XMS_ITS | Encounter Summary ---
Author Name Unknown Organization [facility] Address [address] [place] [address] Care Team Providers Care Independent Living Advisor Name Role Phone Unavailable Primary Care Provider Unavailabl e Encounter Details Date Type Department Care Team (Late st Contact Info) Description 07/23/2023 Orders Only Division of Gastroenterology in [place], [place] [address] [place] [id number] Fernando Ye M.D. [address] [place] [address] Genetic Susceptibility To Disease Social History Tobacco Use Types Packs/Day Years Used Date Smoking Tobacco: Former Cigarettes Q uit: 1985 Smokeless Tobacco: Never Humiliation, Afraid, Rape, and Kick questionnair e [...] 11/24/2021 How often do you attend chur ch or sikhism services? Never 11/24/2021 Do you belong to any clubs o r organizations such as moravian groups, unions, fraternal or athletic groups, or [...] and heating? Not hard at all 11/24/2021 [facility] of Occupat ional Health - Occupational Stress [...] money to buy more. Never true 11/25/19 22 Within the past 12 months, t he [...] place to sleep or slept in a long term (including now)? No 11/24/2021 Nutrition Answer Date [...] Orientation Straight 02/23/2022 7: 52 PM CDT documented as of this encounter Plan of Treatment Not on file documented as of this encounter Procedures Procedure Name Priority Date/Time Associated Diagnosis Comments EXT TAPESTRY Routine 02/08/2023 12:00 AM CDT Genetic Susceptibility To Disease documented in this encounter Results * EXT Tapestry (02/08/2023 12:00 AM CDT) Gene Studied BRCA1,BRCA2,MLH1,MSH 2, MSH6,PMS2,EPCAM,APOB,L DLR,LDLRAP1,PCSK9 03/06/2023 12:00 AM CDT [facility] Genetic Disease Assessed Evaluation of 11 genes associated with Hereditary Breast and Ovarian Cancer, Jenkins Syndrome and Familial Hypercholesterolemia. 03/06/2023 12:00 AM [facility] Genetic Analysis Overall Interpretation Negative results through Tapestry do not replace diagnostic testing for patients with a personal or family history of cancer/hypercholestero lemia due to limitations with methodology. Consider a referral to a genetic counselor for diagnostic testing if warranted. 03/06/2023 12:00 AM [facility] Genetic Analysis Report See Tapestry PDF Report No actionable gene changes were detected in the genes that cause Familial Hypercholesterolemia. The genes tested for this condition were APOB, LDLR, LDLRAP1, and PCSK9.No actionable gene changes were detected in the genes that cause Hereditary Breast and Ovarian Cancer. The genes tested for this condition were BRCA1 and BRCA2.No actionable gene changes were detected in the genes that cause Jenkins Syndrome. The genes tested for this condition were MLH1, MSH2, MSH6, PMS2 and EPCAM. DNA extracted from this individual's sample was captured and enriched using a custom set of reagents (MetaPack+ chemistry). Targeted regions were sequenced using an Illumina DNA sequencing system. Your sequence was matched to a modified version of the champion standard reference genome ([id number]). Variant calling was completed using a customized version of [employer]'s Allovue software, requiring 20x coverage for validated variant calls. Copy Number Variants (CNVs) were called using a proprietary bioinformatics pipeline that compared the coverage profile of your sample with the coverage profiles of other reference set samples. [facility] GenemusiXmatch then analyzed the generated variant data for the exons and 10 bp of flanking intronic sequence (and select tagged intronic variants) of the 11 genes included in Springpad from the Apprema Database. Your sample was reviewed for single nucleotide variants (SNVs), indels up to 20 bp in length, and CNVs that are known or predicted to be actionable. NOTE: This assay has limited sensitivity to CNVs smaller than a few exons. APOB, PCSK9, and LDLR interpretation and reporting is specific to the Familial Hypercholesterolemia phenotype. Variants associated with other phenotypes such as Hypobetalipoproteinemi a are not included. Some known complex variants like the inversion of exons 1-7 in the MSH2 gene (Lu inversion), exons 11-15 of the PMS2 gene, or variants within or immediately adjacent to long homopolymer runs are not analyzed or reported. There are regions that are not covered, such as deep intronic, promoter, and enhancer regions. This assay cannot detect all variants known to increase disease risk. Other clinical diagnostic testing for these conditions could identify variants not detected by this test. If you have had previous testing, these results should be taken into consideration during risk assessments and medical management. 03/06/2023 12:00 AM CDT [facility] Human Reference Sequence Assembly GRCh38 03/06/2023 12:00 AM CDT [facility] Saliva (Mouth) 02/08/2023 Fernando Ye M.D. LAB GENETI C TESTING HELIX shoutr [id number], [address] [place] [address], [facility] [address], [address]. [place] [address] documented in this encounter Visit Diagnoses Diagnosis Genetic Susceptibility To Disease documented in this encounter
--- OUTSIDE RECORDS SUMMARY | 2023-10-16 11:41 | XMS_ITS | Continuity of Care Document ---
Author Name Unknown Organization [facility] Address [address] [place] [address] Phone Care Team Providers Care Ward Nurse Name Role Phone Joel Meeks Unavailable Unavailable [...] For Visit Diagnoses Date Provider [facility], [address] [place] [address], [id number], tel:[phone] [facility] No Information Vielka Esquivelon. [address] [place] [address], [id number]. tel:[phone] EST PT VISIT LEVEL 4 [facility], [address] [place] [address], [id number], [place] tel:[phone] [facility] Follow Up of Prostate problems (chief complaint) Dietary surveillance and counselingChronic prostatitis Sheree Pires. [address] [place] [address], [id number]. tel:[phone] [facility], [address] [place] [address], [id number], tel:[phone] [facility] No Information [employer] Joel. [address] [place] [address], [id number]. tel:[phone] [facility], [address] [place] [address], [id number], [place] tel:[phone] [facility] No Information [employer] Joel. [address] [place] [address], [id number]. tel:[phone] [facility], [address] [place] [address], [id number], [place] tel:[phone] [facility] No Information Gilberto Sears. , [place], [address], [place]. EST PT VISIT LEVEL 2 [facility], [address] [place] [address], [id number], [place] tel:[phone] [facility] Prostate problems (chief complaint) Dietary surveillance and counselingChronic prostatitis Vielka Joel. [address] [place] [address], [id number]. tel:[phone] EST PT VISIT LEVEL 3 [facility], [address] [place] [address], [id number], tel:[phone] [facility] Groin pain (chief complaint) Other specified disorders of male genital organsRight groin pain Vielka Maldonado. [address] [place] [address], [id number]. tel:[phone] EST PT VISIT LEVEL 3 [facility], [address] [place] [address], [id number], tel:[phone] [facility] Testicular pain (chief complaint)Pro state Problems (chief complaint) Nocturia Sheree Pires. [address] [place] [address], [id number]. tel:[phone] [facility], [address] [place] [address], [id number], tel:[phone] [facility] No Information Vielka Maldonado. [address] [place] [address], [id number]. tel:[phone] Family History Family Member Type Diagnosis Age At Onset Problem (finding) Family history of coronary arteriosclerosis 65 Immunizations Vaccine Date Status Comments Influenza, live, intranasal, quadrivalent administered Note: Invalid docume nted admin date was . ; Source: Other Provider Payers Payer name Insurance type Covered green party ID Luciano graham(s) [facility] Part B W P S [id number] [facility] W P S [id number] Social History Type Description Quantity Date Captured [...] occur randomly. Patient initially presented in the [facility] with what I believe was a acute [...] light laser about 10 years ago in [place]. He has had intermittent symptoms. Throughout the years. He presents today as he has been having symptoms for about 3 months. He has just finished a one-month course of Cipro. He appears to have a nonbacterial prostatitis. His symptoms are worse with spicy and acidic foods or if he gets dehydrated. He is getting ready to leave for the [facility] in the morning for 5 [...] 12 years ago and a urologist in [place] found some cysts on his testicle and [...]
--- OUTSIDE RECORDS SUMMARY | 2023-10-16 11:41 | XMS_ITS | Clinical Summary ---
Author Name Unknown Organization [facility] Address [address] [place] [address] Care Team Providers Care Psychologist Experimental Name Role Phone Unavailable Primary Care Provider Unavailabl e Source Comments Patient records contain information from all sites at [facility]. For routine questions regarding patient records, call [phone] during business hours, M-F 8:00 AM - 5:00 PM Central Time. Record requests for emergency care only can be directed to [phone] at any time.[facility] Allergies No known active allergies Medications Medication [...] Peripheral 02/28/2022 Migraine Headache 02/28/2022 Spasm Muscle Encounters Date Type Department Care Team Description 07/23/2023 Orders Only Division of Gastroenterology in [place], [place] [address] [place] [address] Fernando Ye M.D. Genetic Susceptibility To Disease from Last 3 Months Social History Tobacco [...] often do you attend chur ch or latter-day services? Never 11/24/2021 Do you belong to any clubs o r organizations such as zoroastrianism groups, unions, fraternal or athletic groups, or [...] and heating? Not hard at all 11/24/2021 [facility] [place] of Occupat ional Health - Occupational Stress [...] place to sleep or slept in a assisted (including now)? No 11/24/2021 Nutrition Answer Date [...] Mass Index - - Plan of Treatment Health Maintenance Due Date Last Done Comments Abdominal Aortic Aneurysm (A AA) Screen 1948 CT Colonography 1948 Cologuard 1948 Colonoscopy 1948 Colorectal Cancer Screening 1948 FIT 1948 Hepatitis C Screening 1950 Depression Screening (Annual PHQ-2) 06/02/2023 Fall Risk Screen (Annual) 06/02/2023 COVID-19 Vaccine (2022-2 4 season) 2023 04/03/2023, 03/21/2022, 10/16/2021, Additional history exists Fasting Glucose for Diabetes Screening 12/04/2025 12/04/2022, 11/22/2022, 09/02/2022, Additional history exists DTaP,Tdap,and Td Vaccines (2 - Td or Tdap) 03/01/2026 03/01/2016 Pneumococcal vaccine (65+ years) Completed 05/14/20 18, 03/01/2016 Zoster Vaccines Completed 09/06/2020, 03/23/2020 Influenza Vaccine Completed 04/03/2023, , 03/21/2021, Additional history exists Procedures Procedure Name Priority Date/Time Associated Diagnosis Comments EXTI BASIC METABOLIC PANEL, S/P Routine 12/04/2022 10:31 AM CDT from Last 3 Months or Most Recently Relevant to Health Maintenance
== END 2023-09-25 07:37 | disposition home or self-care (01) ==
LOC: NFLDREF 10-16 11:36
PROVIDERS: PCP Internal Medicine; Referring Provider Internal Medicine; Visit Provider Internal Medicine
DX: E78.5 Hyperlipidemia, unspecified (principal); I10 Essential (primary) hypertension; Z12.5 Encounter for screening for malignant neoplasm of prostate; N40.0 Benign prostatic hyperplasia without lower urinary tract symptoms
CPT/HCPCS: 80053; 80061; G0103

== ENCOUNTER 2023-11-25 16:30 | Outpatient (CLI) | payer MEDICARE, OTHER, SELFPAY ==
--- OUTSIDE RECORDS SUMMARY | 2023-11-25 16:32 | XMS_ITS | Continuity of Care Document ---
Author Organization [facility] Address [address] [place] [address] Phone Care Team Providers Care Casket Upholsterer Name Role Phone Joel Meeks Unavailable Unavailable [...] For Visit Diagnoses Date Provider [facility], [address] [place] [address], [id number], tel:[phone] [facility] No Information Vielka Maldonado. [address] [place] [address], [id number]. tel:[phone] EST PT VISIT LEVEL 4 [facility], [address] [place] [address], [id number], [place] tel:[phone] [facility] Follow Up of Prostate problems (chief complaint) Dietary surveillance and counselingChronic prostatitis Sheree Pires. [address] [place] [address], [id number]. tel:[phone] [facility], [address] [place] [address], [id number], tel:[phone] [facility] No Information [place] Joel. [address] [place] [address], [id number]. tel:[phone] [facility], [address] [place] [address], [id number], tel:[phone] [facility] No Information [place] Joel. [address] [place] [address], [id number]. tel:[phone] [facility], [address] [place] [address], [id number], [place] tel:[phone] [facility] No Information Gilberto Sears. , [place], [address], [place]. EST PT VISIT LEVEL 2 [facility], [address] [place] [address], [id number], tel:[phone] [facility] Prostate problems (chief complaint) Dietary surveillance and counselingChronic prostatitis [place] Joel. [address] [place] [address], [id number]. tel:[phone] EST PT VISIT LEVEL 3 [facility], [address] [place] [address], [id number], tel:[phone] [facility] Groin pain (chief complaint) Other specified disorders of male genital organsRight groin pain Vielka Maldonado. [address] [place] [address], [id number]. tel:[phone] EST PT VISIT LEVEL 3 [facility], [address] [place] [address], [id number], tel:[phone] [facility] Testicular pain (chief complaint)Pro state Problems (chief complaint) Nocturia Sheree Pires. [address] [place] [address], [id number]. tel:[phone] [facility], [address] [place] [address], [id number], tel:[phone] [facility] No Information Vielka Maldonado. [address] [place] [address], [id number]. tel:[phone] Family History Family Member Type Diagnosis Age At Onset Problem (finding) Family history of coronary arteriosclerosis 65 Immunizations Vaccine Date Status Comments Influenza, live, intranasal, quadrivalent administered Note: Invalid docume nted admin date was . ; Source: Other Provider Payers Payer name Insurance type Covered republican ID Luciano graham(s) [facility] Part B W P S [id number] [facility] W P S [id number] Social History Type Description Quantity Date Captured [...] occur randomly. Patient initially presented in the [facility] with what I believe was a acute [...] light laser about 10 years ago in [place]. He has had intermittent symptoms. Throughout the years. He presents today as he has been having symptoms for about 3 months. He has just finished a one-month course of Cipro. He appears to have a nonbacterial prostatitis. His symptoms are worse with spicy and acidic foods or if he gets dehydrated. He is getting ready to leave for the [facility] in the morning for 5 days. [...] 12 years ago and a urologist in [place] found some cysts on his testicle and [...] pain Prostate Problems Testicular pain (comments) Brook benson has a long history of right testalgia [...]
--- OUTSIDE RECORDS SUMMARY | 2023-11-25 16:32 | XMS_ITS | Clinical Summary ---
Author Organization [facility] Address [address] [place] [address] Care Team Providers Care Dental Treatment Coordinator Name Role Phone Unavailable Primary Care Provider Unavailabl e Source Comments Patient records contain information from all sites at [facility]. For routine questions regarding patient records, call [phone] during business hours, M-F 8:00 AM - 5:00 PM Central Time. Record requests for emergency care only can be directed to [phone] at any time.[facility] Allergies No known active allergies Medications [...] Date Smoking Tobacco: Former Cigarettes Q uit: 1984 Smokeless Tobacco: Never Tobacco Cessation:Counseling Given: Not [...] How often do you attend chur or evangelical services? Never 11/24/2021 Do you belong to any clubs o r organizations such as episcopalian groups, unions, fraternal or athletic groups, or [...] and heating? Not hard at all 11/24/2021 [facility] of Occupat ional Health - Occupational Stress [...] place to sleep or slept in a custodial (including now)? No 11/24/2021 Nutrition Answer Date [...]
--- OUTSIDE RECORDS SUMMARY | 2023-11-25 16:32 | XMS_ITS | Continuity of Care Document ---
Author Organization [facility] Address [address] [address] [place] [address] Phone Care Team Providers Care Cardiac Monitor Technician Name Role Phone Jamar Russell MD Unavailable [...] Copied on Encounter Offic/outpt E&m Estab Low-mod [facility], [address] [address], [place], [id number], [place] tel:[phone] [facility] GI Symptoms or Concerns (chief complaint) Irritable bowel syndrome with diarrhea 1 Drew Roldan. [address], [facility] [address], [place], [id number] , [place]. tel: [phone] Referring Provider: Referral Self, USE FOR SELF REFERRALS. [facility], [address] [address], [place], [id number], [place] tel:[phone] [facility] No Information 1 Albaro Garcia. [address], [facility] [address], [place], [id number] , [place]. tel: [phone] [facility], [address] [address], [place], [id number], [place] tel:[phone] [facility] No Information 1 Edstrmichel Welch. [address], [facility] [address], [place], [id number] , [place]. tel: [phone] Established Level 3 or 15-24 min [facility], [address] [address], [place], [id number], [place] tel:[phone] [facility] GI Symptoms or Concerns (chief complaint) Mixed irritable bowel syndromeEncounte r for screening colonoscopy 0 Sumantrmichel Welch. [address], [facility] [address], [place], [place], [id number] , [place]. tel: [phone] Referring Provider: Referral Self, USE FOR SELF REFERRALS. [facility], [address] [address], [place], [id number], [place] tel:[phone] [facility] Mixed irritable bowel syndrome 0 Edstrom LIANG Welch. [address], [address], [place], [place], [id number] , [place]. tel: [phone] Referring Provider: Rebekah TAVERA, [address], [place], [address] . tel:[phone] [facility], [address] [address], [place], [id number], [place] tel:[phone] [facility] Mixed irritable bowel syndrome 0- 0 Edstrom LIANG Welch. [address], [address], [place], [place], [id number] , [place]. tel: [phone] Referring Provider: Rebekah TAVERA, [address], [place], [address] . tel:[phone] [facility], [address] [address], [place], [id number], [place] tel:[phone] [facility] Mixed irritable bowel syndrome 0 Edstrmichel Welch. [address], [address], [place], [place], [id number] , [place]. tel: [phone] Referring Provider: Rebekah TAVERA, [address], [place], [address] . tel:[phone] [facility], [address] [address], [place], [id number], [place] tel:[phone] [facility] Mixed irritable bowel syndrome Dec- 0 Edstrmichel Welch. [address], [address], [place], [place], [id number] , [place]. tel: [phone] Referring Provider: Referral Self, USE FOR SELF REFERRALS. New Level 3 or 30-44 min [facility], [address] [address], [place], [id number], [place] tel:[phone] [facility] GI Symptoms or Concerns (chief complaint) Irritable bowel syndrome with both constipation and diarrhea 0 Sumantrmichel Welch. [address], [facility] [address], [place], [place], [id number] , [place]. [phone] Referring Provider: Kun Porter, [address] [place] [address], [address]. tel:[phone] [facility], [address] [address], [place], [place], [id number], [place] tel:[phone] [facility] No Information 0 Albaro Garcia. [address], [facility] [address], [place], [place], [id number] , [place]. tel:[phone] Family History Family Member Type Diagnosis Age [...] Registry Payers Payer name Insurance type Covered libertarian ID Authoriza tihilda(s) Medicare NGS MB [id number] [facility] [id number] Social History Type Description Quantity Date Captured [...]
--- OUTSIDE RECORDS SUMMARY | 2023-11-25 16:33 | XMS_ITS | Continuity of Care Document ---
Author Name [facility] Organization [facility] Care Team Providers Care Asp Net Software Developer Name Role Phone [facility] Unavailable Unavailable Medications Combined list of outpatient medications from Department of Defense and Veterans Affairs facilities.Medications provided include 1) outpatient medications from the last 15 months, and 2) patient-reported medications. Medication Details Route Status Patient Instructions Prescription Expires Prescription Number Last Dispense Date Ordering Provider Order Date Order Qty Source ALLOPURINOL (allopurino l), 300 MG, TABLET, ORAL, [facility], 500 ea. BOTTLE Active [id number] 2023 90 Pharmac y Data Transac tion Service Facilit y ALLOPURINOL (allopurino l), 300 MG, TABLET, ORAL, [facility], 500 ea. BOTTLE Active [id number] 2023 90 Pharmac y Data Transac tion Service Facilit y CARVEDILOL (CARVEDILOL ), 3.125MG, TABLET, ORAL, GLENMARK PHARMA, 500 ea. BOTTLE Active [id number] 2023 180 Pharmac y Data Transac tion Service Facilit y CARVEDILOL (CARVEDILOL ), 3.125MG, TABLET, ORAL, GLENMARK PHARMA, 500 ea. BOTTLE Active [id number] 4 2023 180 Pharmac y Data Transac tion Service Facilit y CIPROFLOXAC IN HCL (CIPROFLOXA ZORAIDA HCL), 500MG, TABLET, ORAL, AUROBINDO PHARM, 100 ea. BOTTLE Active [id number] 2023 20 Pharmac y Data Transac tion Service Facilit y DICYCLOMINE HCL (DICYCLOMIN E HCL), 10MG, CAPSULE, ORAL, Embedded [facility], 100 ea. BOTTLE Cancele d [id number] : 2023 0 Pharmac y Data Transac tion Service Facilit y DICYCLOMINE HCL (DICYCLOMIN E HCL), 10MG, CAPSULE, ORAL, [facility], 100 ea. BOTTLE Cancele d [id number] : 2023 0 Pharmac y Data Transac tion Service Facilit y DICYCLOMINE HCL (DICYCLOMIN E HCL), 10MG, CAPSULE, ORAL, [facility], 100 ea. BOTTLE Cancele d [id number] : 2023 0 Pharmac y Data Transac tion Service Facilit y DICYCLOMINE HCL (DICYCLOMIN E HCL), 10MG, CAPSULE, ORAL, [facility],I NC., 1000 ea. BOTTLE Cancele d [id number] : 2023 0 Pharmac y Data Transac tion Service Facilit y DICYCLOMINE HCL (DICYCLOMIN E HCL), 10MG, CAPSULE, ORAL, [facility],I NC., 1000 ea. BOTTLE Active [id number] 2023 90 Pharmac y Data Transac tion Service Facilit y DICYCLOMINE HCL (DICYCLOMIN E HCL), 10MG, CAPSULE, ORAL, [facility],I NC., 1000 ea. BOTTLE Active [id number] 2023 90 Pharmac y Data Transac tion Service Facilit y DIPHENOXYLA TE-ATROPINE (diphenoxyl ate HCl/atropin e sulfate), 2.5-.025MG, TABLET, ORAL, [facility], 100 ea. BOTTLE Active [id number] 2022 30 Pharmac y Data Transac tion Service Facilit y ENTRESTO (sacubitril /valsartan) , 24 MG-26MG, TABLET, ORAL, NOVARTIS, 60 ea. BOTTLE Cancele d [id number] : 2023 0 Pharmac y Data Transac tion Service Facilit y ENTRESTO (sacubitril /valsartan) , 24 MG-26MG, TABLET, ORAL, NOVARTIS, 60 ea. BOTTLE Active [id number] 2023 180 Pharmac y Data Transac tion Service Facilit y ENTRESTO (sacubitril /valsartan) , 24 MG-26MG, TABLET, ORAL, NOVARTIS, 60 ea. BOTTLE Cancele d [id number] : 2023 0 Pharmac y Data Transac tion Service Facilit y ENTRESTO (sacubitril /valsartan) , 24 MG-26MG, TABLET, ORAL, NOVARTIS, 60 ea. BOTTLE Cancele d [id number] : 2023 0 Pharmac y Data Transac tion Service Facilit y ENTRESTO (sacubitril /valsartan) , 24 MG-26MG, TABLET, ORAL, NOVARTIS, 60 ea. BOTTLE Active [id number] 2023 180 Pharmac y Data Transac tion Service Facilit y GABAPENTIN (GABAPENTIN ), 100 MG, CAPSULE, ORAL, ACTAVIS PHARMA,, 500 ea. BOTTLE Active [id number] 2023 180 Pharmac y Data Transac tion Service Facilit y GABAPENTIN (GABAPENTIN ), 600MG, TABLET, ORAL, GLENMARK PHARMA, 500 ea. BOTTLE Active [id number] 2023 180 Pharmac y Data Transac tion Service Facilit y GABAPENTIN (GABAPENTIN ), 600MG, TABLET, ORAL, GLENMARK PHARMA, 500 ea. BOTTLE Active [id number] 2023 180 Pharmac y Data Transac tion Service Facilit y IBUPROFEN (ibuprofen) , 800 MG, TABLET, ORAL, AUROBINDO PHARM, 500 ea. BOTTLE Active [id number] 2023 30 Pharmac y Data Transac tion Service Facilit y PANTOPRAZOL E SODIUM (PANTOPRAZO LE SODIUM), 40 MG, TABLET DR, ORAL, MYLAN, 90 ea. BOTTLE Active [id number] 2023 90 Pharmac y Data Transac tion Service Facilit y PANTOPRAZOL E SODIUM (PANTOPRAZO LE SODIUM), 40 MG, TABLET DR, ORAL, MYLAN, 90 ea. BOTTLE Active [id number] 2023 90 Pharmac y Data Transac tion Service Facilit y SILDENAFIL CITRATE (sildenafil citrate), 100 MG, TABLET, ORAL, AMNEAL PHARMACE, 30 ea. BOTTLE Active [id number] 2023 9 Pharmac y Data Transac tion Service Facilit y SILDENAFIL CITRATE (sildenafil citrate), 100 MG, TABLET, ORAL, AMNEAL PHARMACE, 30 ea. BOTTLE Active [id number] 2023 9 Pharmac y Data Transac tion Service Facilit y SILDENAFIL CITRATE (sildenafil citrate), 100 MG, TABLET, ORAL, AMNEAL PHARMACE, 30 ea. BOTTLE Active [id number] 2023 9 Pharmac y Data Transac tion Service Facilit y SILDENAFIL CITRATE (sildenafil citrate), 100 MG, TABLET, ORAL, AMNEAL PHARMACE, 30 ea. BOTTLE Active [id number] 2023 9 Pharmac y Data Transac tion Service Facilit y SILDENAFIL CITRATE (sildenafil citrate), 100 MG, TABLET, ORAL, AMNEAL PHARMACE, 30 ea. BOTTLE Active [id number] 4 2023 9 Pharmac y Data Transac tion Service Facilit y SILDENAFIL CITRATE (sildenafil citrate), 100 MG, TABLET, ORAL, CAMBER PHARMACE, 30 ea. BOTTLE Cancele d [id number] : 2023 0 Pharmac y Data Transac [...] Veterans Affairs facilities going back up to thelast 18 months, not all VA non-surgical procedures are included; 2) All procedures from the Department of Defense facilities. Procedure Procedure Type Code Date Perfomer Comments Sourc e NASOPHARYNGOSCOPY WITH ENDOSCOPE (SEPARATE PROCEDURE) 08/24/2003 [facility] RADIOLOGIC EXAMINATION, CHEST, 2 VIEWS, FRONTAL AND LATERAL; 08/10/2003 [facility]ILLER ELECTROCARDIOGRAPHIC RECORDING UP TO 48 HOUR,CONT RHYTHM RECORDING & STORAGE;INCLUD RECORDING,SCANNING ANAL W REPORT,REVIEW &INTERPRETATION,A PHYSICIAN/OTHER QUALIFIED HEALTH LAMINATION BUILDER 07/29/2003 [facility] BLOOD PRESSURE CUFF ONLY 03/25/2003 [facility] BLOOD PRESSURE CUFF ONLY 03/24/2003 [facility] BLOOD PRESSURE CUFF ONLY 03/22/2003 [facility] BLOOD PRESSURE CUFF ONLY 03/21/2003 [facility] BLOOD PRESSURE CUFF ONLY 03/18/2003 [facility] BLOOD PRESSURE CUFF ONLY 03/15/2003 [facility] COLLECTION OF VENOUS BLOOD B Y VENIPUNCTURE 11/17/2002 [facility] EDUCATIONAL SUPPLIES, SUCH A S BOOKS, TAPES, AND PAMPHLETS, FOR THE PATIENT'S EDUCATION AT COST TO PHYSICIAN OR OTHER QUALIFIED HEALTH LAMINATION BUILDER 07/11/2000 [facility] DESTRUCT (EG, LASER SURGERY, ELECTROSURGERY, [...]
--- OUTSIDE RECORDS SUMMARY | 2023-11-25 16:33 | XMS_ITS | Referral Summary ---
Author Organization [facility] Address [address] [place] [address] Care Team Providers Care Anglesmith Name Role Phone Unavailable Primary Care Provider Unavailabl e Source Comments Patient records contain information from all sites at [facility]. For routine questions regarding patient records, call [phone] during business hours, M-F 8:00 AM - 5:00 PM Central Time. Record requests for emergency care only can be directed to [phone] at any time.[facility] Allergies No known active allergies Medications Medication [...] How often do you attend chur or scientology services? Never 11/24/2021 Do you belong to any clubs o r organizations such as catholic groups, unions, fraternal or athletic groups, or [...] and heating? Not hard at all 11/24/2021 [facility] - Occupational Stress [...] place to sleep or slept in a mcc (including now)? No 11/24/2021 Nutrition Answer Date [...]
--- OUTSIDE RECORDS SUMMARY | 2023-11-25 16:33 | XMS_ITS ---
Author Organization [facility] Address [address] [place] [address] Care Team Providers Care Poll Clerk Name Role Phone Unavailable Unavailable Unavailable Surgery Details Not on file Complications Check Surgery Details section. Procedure Estimated Blood Loss Check Surgery Details section. Procedure Findings Check Surgery Details section. Procedure Specimens Taken Check Surgery Details section.
--- OUTSIDE RECORDS SUMMARY | 2023-11-25 16:33 | XMS_ITS | Clinical Summary ---
Author Organization [facility] Address [place], [place] [address] Care Team Providers Care Edge Sawyer Name Role Phone Kun Schneider MD Primary Care Provider Allergies No [...] daily. 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 Further refills at time of next office visit on 11/27/23. 180 Tablet 10/07/2023 Active Encounters Date Type Department Care Team Description 10/10/2023 Travel 10/07/2023 Refill [facility] [place] [address] [facility] [address] [place] [phone] Piper Pickering CNS Refill Request (Entresto 24 [...] Comments Blood Pressure 140/90 04/18/2023 3:02 PM TRIMMER MACHINE Pulse 83 04/18/2023 3:02 PM TRIMMER MACHINE Temperature 35.6 ??C (96 ??F) 09/02/2022 2:12 PM CDT Respiratory Rate 18 09/02/2022 2:12 PM CDT Oxygen Saturation 95% 04/18/2023 3:02 PM TRIMMER MACHINE Inhaled Oxygen Concentration - - Weight 94.8 kg (209 lb 1.6 oz) 04/18/2023 3:02 P M TRIMMER MACHINE Height 182.9 cm (6') 04/18/2023 3:02 PM TRIMMER MACHINE Body Mass Index 28.36 04/18/2023 3:02 PM TRIMMER MACHINE Plan of Treatment Upcoming Encounters Date Type Department Care Team (Late st Contact Info) Description 11/27/2023 10:00 AM CDT Office Visit [facility] [address] [place] [address] [address] [place] [address] Desmond Calloawy MD [address] [facility] [address] [place] [address] 02/10/2024 11:30 AM CDT Cardiac Device Check [facility] [address] [place] [phone] Health Maintenance Due Date Last Done Comments Pneumococcal series for age 65+ (1 of 2 - PCV) 02/20/1954 Tdap 02/20/1959 Depression screening for age 12+ 1960 Hepatitis C screening for ag e 18-79 02/20/1966 Tetanus booster 1968 Colonoscopy through age 75 02/20/1993 Lipids for age 45-75 02/20/1993 Zoster (shingles) series for age 50+ (1 of 2) 02/20/1998 Medicare Wellness for age 65+ 02/20/2013 COVID-19 vaccine series (2022-24 season) 2023 04/03/2023, 03/21/2022, 10/16/2021, Additional history exists Influenza for age 65+ 02/01/2024 BMI (ht and wt on same day) for age 18+ 04/18/2024 04/18/2023, 11/26/2022, 11/12/2022, Additional history exists Advance Directives * Full Code (Latest Code Status on File) Date Activated Date Inactivated Comments 09/02/2022 9:44 AM 09/02/2022 5:00 PM Question Answer Comments Code Status Discussion: Other Care Teams Edge Sawyer Relationship Specialty Start Date End Date Kun Schneider MD [address] [place] [address] (work) PCP - General Internal Medicine 12/27/16
--- NOTE | 2023-11-25 16:45 | CRLHL7_ITS ---
For Patients: As a result of the Century Cures Act, medical imaging exams and procedure reports are released immediately into your electronic medical record. You may view this report before your referring provider. If you have questions, please contact your health care provider. INDICATION: Testicular pain. TECHNIQUE: Scrotal ultrasound with melgoza scale, color spectral Doppler images. FINDINGS: Both testicles have normal parenchymal echogenicity. No solid testicular mass. Two incidental subcentimeter cysts in the medial left testicle. Normal symmetric color and spectral Doppler flow to both testicles. No hydrocele. No varicocele. IMPRESSION: Normal scrotal ultrasound. Dictated by Herman Owen MD @ 11/26/2023 11:56:32 AM (Electronically Signed)
== END 2023-11-25 16:31 | disposition home or self-care (01) ==
LOC: US 16:30
PROVIDERS: PCP Internal Medicine; Visit Provider Internal Medicine
DX: N50.819 Testicular pain, unspecified (principal)
CPT/HCPCS: 76870; 93976

== ENCOUNTER 2024-01-12 08:30 | Outpatient (RCR) | payer MEDICARE, OTHER, SELFPAY ==
--- NOTE | 2023-12-22 12:11 | PT.OPEX ---
Please review and sign the attached physical therapy evaluation completed on 12/22/23. Thank you. [facility] PT [facility] Outpatient Eval Start: 12/19/23 08:31 Freq: Status: Active Protocol: Document 12/22/23 07:14 TLQ (Rec: 12/22/23 09:10 TLQ [id number]) E-signed By Beatrice Hernandez DPT Physical Therapy Outpatient Evaluation Insurance Information Recert Due Date 03/21/24 Insurance Name Medicare B Medical Diagnosis Polyneuropathy, unspecified G62.9 Cervicalgia M54.2 Treating Diagnosis Cervicalgia M54.2 Stiffness M25.60 Muscle weakness M62.81 Referring MD Kun Schneider MD Subjective Preferred Name Juice Bose is here today to address neck pain. States he likes to take short-duration naps throughout the day, lays on his back with his head propped with pillows. About two months ago he woke up from a nap while in [place] and experienced pain and stiffness in the right side of his neck . Since then he has been able to comfortably sleep on his left side but not on his right . States since this initial incident of pain he states his symptoms have been improving. Does notice that his neck symptoms seem to be worse in the evenings. Denies radicular symptoms at this time, denies new onset of headaches but does have a history of migraines with aura. Juice states he is a strong believer in physical therapy, would like to find exercises that he can work into his daily routine. Already has a stretching routine for pelvic floor and plantar fasciitis. He enjoys working out at the [place] gym. PMHx: HTN, hyperlipidemia, Mobitz Type 2 AV block, pacemaker (June 2022), spinal stenosis, neuropathy, BPH Pain Comments 2/10 today at worst: 4-5/10 at night location: cervical, right alleviating factors: rest aggravating factors: turning head toward the right Date of Last Physician Visit 10/22/23 Current Work Status Retired Precautions Therapy Limitations/Systems Review Not Limited Objective Other/Pertinent Objective CERVICAL ROM flexion: 64 degrees extension: 42 degrees rotation: R 32 degrees pain, L 50 degrees lateral flexion: R 12 degrees pain, L 30 degrees CERVICAL STRENGTH flexion: 5 extension: 5 lateral flexion: R 4+ pain, L 5 scap. elevation: 5 BL DNF endurance: 20 seconds ( mean: 38.9s men) PALPATION tender on R at levator scap, upper trapezius JOINT MOBILITY hypomobile on R cervical UPA C3-6 normal 1st rib depression mobility SPEICAL TESTS Sharp-cuca (-) Spurling's (-) Quadrant (-) Cervical distraction: no change in symptoms Assessment Assessment/Impression Patient is a 73-year-old male who presents to outpatient physical therapy to address right sided cervicalgia with mobility deficits. Onset of symptoms 2 months ago, patient experienced stiffness in the right side of his neck, worsens in the evenings. Symptoms had been improving since initial onset, however, patient reports a plateau in improvement over the past few weeks. He denies dizziness, headaches, or radicular symptoms at this time. In clinic today he demonstrates cervical AROM restrictions with rotation and sidebending toward the right. Small improvement in range observed with passive mobility assessment. Tenderness present at levator scapulae and upper trapezius muscles on the right. Patient was instructed through interventions to address cervical mobility and flexibility, provided with a printed home exercise program. He verbalizes interest in implementing a stretching routine that he can complete at home, is motivated to participate in physical therapy. Examination findings were reviewed with the patient and discussed benefits of physical therapy intervention; patient verbally agreed to POC. He will benefit from skilled physical therapy to address the deficits indicated above and meet goals as outlined below. Primary Functional Limitations R cervical rotation, muscle tightness, stiffness Plan of Care Rehabilitation Potential Good Physical Therapy Goals In 4 visits: - Patient will report a 50% improvement in evening cervicalgia symptoms. - Patient will demonstrate a 10 degree improvement in R cervical rotation for improved cervical mobility. In 8-10 visits: - Patient will report a reduction in pain to no more than 2/10 for improved tolerance to ADL's. - Patient will demonstrate R cervical rotation to 50- degrees or more for improved visibility while driving. - Patient will adhere to his HEP in order to manage symptoms outside of formal PT. Treatment Plan/Direct Interventions Manual Therapy,Neuromuscular Re-ed,Self-Care/Home Management,Therapeutic Activities,Therapeutic Exercises Frequency/Duration 1x/week for 8-10 weeks Patient Will Be Discharged From Therapy Completion of LTG(s),Skills Plateau,Independent w/HEP, Independently Progressing Evaluation Billing Untimed Code Treatment Minutes 50 Complexity Low Certification Information Initial Certification Date 12/22/23 Ending Certification Date 03/21/24 Provider Signature Required Yes Provider Signature Shows Agreement With POC & Medical Necessity Physician NPI Number Write NPI# Here Physician Comment/Change : Physician Signature & Date Requested Please Sign/Date Here
== END 2024-03-10 11:03 | disposition home or self-care (01) ==
PROVIDERS: PCP Internal Medicine; Visit Provider Internal Medicine
DX: G62.9 Polyneuropathy, unspecified (principal); M54.2 Cervicalgia; M25.60 Stiffness of unspecified joint, not elsewhere classified; M62.81 Muscle weakness (generalized); Z51.89 Encounter for other specified aftercare
CPT/HCPCS: 97110; 97140; 97161

== ENCOUNTER 2024-09-06 08:40 | Outpatient (CLI) | payer MEDICARE, OTHER, SELFPAY | END 2024-09-06 08:41 | disposition home or self-care (01) | LOC: NFLDREF 09-10 06:37 | PROVIDERS: PCP Internal Medicine; Referring Provider Internal Medicine; Visit Provider Internal Medicine | DX: N41.9 Inflammatory disease of prostate, unspecified (principal); I10 Essential (primary) hypertension; E78.5 Hyperlipidemia, unspecified; N40.0 Benign prostatic hyperplasia without lower urinary tract symptoms; Z12.5 Encounter for screening for malignant neoplasm of prostate | CPT/HCPCS: 80053; 80061; G0103 ==

== ENCOUNTER 2025-01-10 10:45 | Outpatient (CLI) | payer MEDICARE, OTHER, SELFPAY | END 2025-01-10 10:46 | disposition home or self-care (01) | PROVIDERS: PCP Internal Medicine; Referring Provider Internal Medicine; Visit Provider Internal Medicine | DX: E78.5 Hyperlipidemia, unspecified (principal) | CPT/HCPCS: 80061 ==

== ENCOUNTER 2025-04-21 08:58 | Outpatient (CLI) | payer MEDICARE, OTHER, SELFPAY ==
--- NOTE | 2025-04-21 09:00 | CT_ITS ---
Patient: CARLO HERNANDEZ Facility:?[facility] Patient ID:?[id number] Site Patient ID:?[id number] Site :?[id number] Study:?CT-Head Angio ANGIO HEAD AND NECK W/95CC [id number] A-04/21/2025 10:22:58 AM Ordering Physician:Christy Barker Final Report: CT ANGIOGRAM HEAD AND NECK DATE: 04/21/2025 CLINICAL HISTORY: Patient with headaches. TECHNIQUE: Standard helical CT image acquisition through the head and neck was performed after intravenous contrast bolus enhancement. 2D and 3D MIP images for post-processing were performed and interpreted on an independent workstation and 3D images were permanently archived. COMPARISON: None. FINDINGS: The origins of the great vessels from the aortic arch were not imaged. The origin of the right vertebral artery is patent. The origin of the left vertebral artery is patent. The common carotid arteries are patent. There is no stenosis at the origin of the right internal carotid artery by NASCET criteria. There is no stenosis at the origin of the left internal carotid artery by NASCET criteria. The rest of the cervical segments of the internal carotid arteries are patent up to their intracranial segments. The intracranial segments of the internal carotid arteries demonstrate mild intracranial atherosclerosis. The left vertebral artery is dominant. The cervical segments of the vertebral arteries are patent. The intracranial segments of the vertebral arteries are patent. The middle cerebral arteries are normal without aneurysm or proximal occlusion identified. The anterior cerebral arteries are normal without aneurysm or proximal occlusion identified. The anterior communicating artery is well visualized and appears normal. The basilar artery is normal without aneurysm or occlusion. The posterior cerebral arteries are normal without aneurysm or proximal occlusion. There is normal opacification of major intracranial venous structures. The visualized lung apices are unremarkable. The thyroid gland is unremarkable. The soft tissues of the neck are unremarkable. There are degenerative changes in the cervical spine. IMPRESSION: Patent cervical and proximal intracranial vasculature without intracranial aneurysms. Please note that all CT scans at this facility use dose modulation, iterative reconstruction, and/or weight-based dosing when appropriate to reduce radiation dose to as low as reasonably achievable. Dictated by: Josef Underwood MD @ 04/21/2025 17:06:12 Signed by:?Josef Underwood MD @04/21/2025 5:06:12 PM (Electronic Signature)
--- NOTE | 2025-04-21 09:30 | CT_ITS ---
Patient: CARLO HERNANDEZ Facility:?[facility] Patient ID:?[id number] Site Patient ID:?[id number] Site :?[id number] Study:?CT-Neck Angio Angio HEAD AND NECK ANGIO W/95CC ISOVU-04/21/2025 10:22:04 AM Ordering Physician:Christy Barker Final Report: CT ANGIOGRAM HEAD AND NECK DATE: 04/21/2025 CLINICAL HISTORY: Patient with headaches. TECHNIQUE: Standard helical CT image acquisition through the head and neck was performed after intravenous contrast bolus enhancement. 2D and 3D MIP images for post-processing were performed and interpreted on an independent workstation and 3D images were permanently archived. COMPARISON: None. FINDINGS: The origins of the great vessels from the aortic arch were not imaged. The origin of the right vertebral artery is patent. The origin of the left vertebral artery is patent. The common carotid arteries are patent. There is no stenosis at the origin of the right internal carotid artery by NASCET criteria. There is no stenosis at the origin of the left internal carotid artery by NASCET criteria. The rest of the cervical segments of the internal carotid arteries are patent up to their intracranial segments. The intracranial segments of the internal carotid arteries demonstrate mild intracranial atherosclerosis. The left vertebral artery is dominant. The cervical segments of the vertebral arteries are patent. The intracranial segments of the vertebral arteries are patent. The middle cerebral arteries are normal without aneurysm or proximal occlusion identified. The anterior cerebral arteries are normal without aneurysm or proximal occlusion identified. The anterior communicating artery is well visualized and appears normal. The basilar artery is normal without aneurysm or occlusion. The posterior cerebral arteries are normal without aneurysm or proximal occlusion. There is normal opacification of major intracranial venous structures. The visualized lung apices are unremarkable. The thyroid gland is unremarkable. The soft tissues of the neck are unremarkable. There are degenerative changes in the cervical spine. IMPRESSION: Patent cervical and proximal intracranial vasculature without intracranial aneurysms. Please note that all CT scans at this facility use dose modulation, iterative reconstruction, and/or weight-based dosing when appropriate to reduce radiation dose to as low as reasonably achievable. Dictated by: Josef Underwood MD @ 04/21/2025 17:06:02 Signed by:?Josef Underwood MD @04/21/2025 5:06:02 PM (Electronic Signature)
[2025-04-21 09:32] LABS: Creatinine* 1.2 mg/dL (0.5-1.5); Estimated Glomerular Filt Rate 62 ml/min
== END 2025-04-21 08:59 | disposition home or self-care (01) ==
LOC: CT 09:01
PROVIDERS: PCP Internal Medicine; Visit Provider Nurse Practitioner
DX: R51.9 Headache, unspecified (principal); I67.2 Cerebral atherosclerosis; M47.812 Spondylosis without myelopathy or radiculopathy, cervical region
CPT/HCPCS: 36415; 70496; 70498; 82565; Q9967